=== PATIENT | male | born 1960 | race Caucasian/White ===

== ENCOUNTER → 2023-05-21 11:43 | Outpatient (CLI) | payer MEDICARE, OTHER, SELFPAY ==
--- NOTE | 2023-05-21 | DI.MRI.S_ITS ---
PROCEDURE: MR LUMBAR SPINE WO CON INDICATIONS: Unspecified thoracic, thoracolumbar and lumbosacral interver TECHNIQUE: Noncontrast sagittal T1 spin echo and T2 fast echo, sagittal STIR, and T2 fast spin echo through the lumbar spine. In cases with scoliosis, additional coronal T2 fast spin echo may be performed. COMPARISON: None. FINDINGS: Image quality: Excellent. Alignment and Curvature: Straightening the normal lumbar lordosis. Mild retrolisthesis of L5 on S1. Bone Marrow: Marrow is of normal overall signal. No acute vertebral body compression fractures. Spinal Cord: Conus medullaris terminates at the L2 level. Visualized cord demonstrates normal signal and size. Paraspinous Soft Tissues: No paravertebral masses. T12-L1: Facet arthropathy. No central canal or neural foraminal stenosis. L1-L2: Disc desiccation and height loss and a posterior disc bulge, asymmetric to the left resulting in severe stenosis of the left lateral recess and possible impingement of the descending left L2 nerve root. There is mild to moderate central canal stenosis. Facet arthropathy, thickening of ligamentum flavum and epidural lipomatosis. Moderate to severe left neural foraminal stenosis. No right neural foraminal stenosis. L2-L3: Disc desiccation height loss with a posterior disc bulge. Superimposed left foraminal protrusion. Facet arthropathy, thickening of the ligamentum flavum and epidural lipomatosis. This results in [id number] central canal stenosis. Moderate bilateral neural foraminal stenosis. L3-L4: Disc desiccation height loss. There is a diffuse posterior disc bulge with annular tearing. There is a superimposed right subarticular disc extrusion, inferiorly directed. This results in severe narrowing of the right lateral recess and likely impingement of the descending right L4 nerve root. There is moderate to severe central canal stenosis. Facet arthropathy, thickening of ligamentum flavum and epidural lipomatosis. There is severe right and mild left neural foraminal stenosis. L4-L5: Severe disc desiccation height loss. Posterior disc bulge. Facet arthropathy, thickening of ligamentum flavum and epidural lipomatosis. This results in moderate to severe central canal stenosis. There is severe bilateral neural foraminal stenosis. L5-S1: Disc desiccation and height loss with a posterior disc bulge. Facet arthropathy. No central canal stenosis. Severe left and moderate right neural foraminal stenosis. IMPRESSION: 1. Multilevel degenerative changes of the lumbar spine as described above. 2. This is most pronounced at L3-L4 with moderate to severe central canal stenosis, severe narrowing of the right lateral recess with likely impingement of the descending right L4 nerve root secondary to a disc extrusion. There is also severe right neural foraminal stenosis. 3. Moderate to severe central canal stenosis at L4-5. Additional levels of central canal stenosis as described above. 4. Multilevel neural foraminal stenosis including severe bilateral neural foraminal stenosis at L4-5 and severe left neural foraminal stenosis at L5-S1. See above for additional levels of neural foraminal stenosis. Dictated by: Michel Farah M.D. on 05/21/2023 at 15:16 Approved by: Michel Farah M.D. on 05/21/2023 at 15:25
== END ==
PROVIDERS: PCP Registered Nurse; Referring Provider Orthopaedic Surgery Orthopaedic Surgery of the Spine; Visit Provider Orthopaedic Surgery Orthopaedic Surgery of the Spine
DX: M48.062 Spinal stenosis, lumbar region with neurogenic claudication (principal); M47.816 Spondylosis without myelopathy or radiculopathy, lumbar region; M47.817 Spondylosis without myelopathy or radiculopathy, lumbosacral region; M48.07 Spinal stenosis, lumbosacral region; M51.9 Unspecified thoracic, thoracolumbar and lumbosacral intervertebral disc disorder
CPT/HCPCS: 72148

== ENCOUNTER 2023-06-10 09:52 | Inpatient (IN) | payer MEDICARE, OTHER, SELFPAY ==
[2023-06-07 08:33] VITALS: BMI 38.5
[2023-06-10] VITALS (16 sets, daily range): BP systolic 127–161; BP diastolic 62–94; PULSE 66–109; RESP 10–20; TEMP 36–36.8; O2SAT 93–100; BMI 38.5
--- NOTE | 2023-06-10 | DI.RAD.S_ITS ---
PROCEDURE: XR LUMBAR SPINE 2-3V INDICATIONS: S TECHNIQUE: 3 views of the lumbar spine were acquired. COMPARISON: None. FINDINGS: Intraoperative fluoroscopic views were performed during pedicular screw and christiano fixation. IMPRESSION: Intraoperative fluoroscopic views as above. Dictated by: Kevin Pathak M.D. on 06/10/2023 at 16:15 Approved by: Kevin Pathak M.D. on 06/10/2023 at 16:15
[2023-06-10] MEDS: LACTATED RINGERS 1,000 ML 42 ML IV ×2 (11:02→18:17)
[2023-06-10] MEDS: GABAPENTIN 600 MG TABLET PO (11:05)
--- NOTE | 2023-06-10 12:01 | PM.PREOP ---
Pre-operative Note Interval Note History & Physical reviewed/Exam performed by Physician: Yes Changes to H&P: No
--- NOTE | 2023-06-10 13:30 | SUR.OPER ---
Prone on spine table, head in foam head support, padded chest and pelvic supports, gel pad at knees, lower legs supported by pillows; nipples, genitalia and toes free of pressure, arms secured on foam padded arm boards at <90 degrees abduction. Tape over blanket at thigh secured to table.
[2023-06-10] MEDS: BUPIVACAINE LIPOSOME 266 MG/20 ML VIAL INJ (13:34)
[2023-06-10] MEDS: BUPIVACAINE 0.25% (PF) 60 ML, EPINEPHrine 0.15 MG INJ (13:34)
[2023-06-10] MEDS: CEFAZOLIN 2 GM/100 ML PREMIX 100 ML IV (13:37)
[2023-06-10] MEDS: CEFAZOLIN VIAL 3 GM in SODIUM CHLORIDE 0.9% 100 ML IV ×2 (13:39→21:15)
--- NOTE | 2023-06-10 15:56 | P.OP_ITS ---
Operative Date/Time/Diagnoses Date of procedure: 06/10/23 Time of procedure: 12:50 Pre-op diagnosis: 1. L3-4 far lateral disc herniation with radiculopathy 2. L3-4 spinal stenosis with neurogenic claudication Post-op diagnosis: same Procedure & Clinicians Procedure: 1. L3-4 Postero-lateral and posterior interbody fusion 2. L3-4 interbody cage placement. 3. L3-4 decompressive laminectomy with bilateral facetecomies 4. L3-4 Posterior non-segmental instrumentation 5. Hammond of bone marrow from iliac crest 6. Utilization of microsurgical technique and operating microscope Same procedure as scheduled: Yes Indications: Patient has been having chronic back pain and worsening lumbar radiculopathy and symptoms of neurogenic claudication. Patient failed multiple conservative management with worsening pain weakness and numbness in her lower extremity. Patient has been having difficulty performing activity of daily living. After discussing risks benefits of treatment options, patient elected proceed with surgery. Surgeon: Sandra Caballero Associate Entertainment Editor: Chidi Goddard Click Yes if Unassisted: No Anesthesia Type: General Operative Notes Closure Type: primary Specimen(s): none sent Prosthetic devices, grafts, tissues, transplants, or devices: Globus revolve screws, Rise cage Estimated Blood Loss (mL): 50 Blood products transfused: none Procedure in detail: Patient was seen in the preoperative area. Risks and benefits of the surgery was discussed with the patient. Informed consent was obtained from the patient and placed in the chart. Surgical site was marked. Patient was taken to the operative room. General anesthesia was administered. Prophylactic antibiotic was given to the patient less than 30 min before the incision was made. Patient was placed into a prone position on the Constantine table. Patient's back was then prep ped and draped in the sterile fashion. Time-out was performed at this time. Using AP and lateral C-arm imaging the interval between L4-5 was identified and marked on patient's back. A 2 inch incision 2 in from midline was made on the right side first. The fascia was incised in line with skin incision. Globus MARS retractors was placed inside the incision and docked onto the L4 lamina. Using microsurgical technique and operating microscope, a L4 laminectomy and L4- 5 facetectomy was performed using a Kerrison rongeur. The laminectomy and facetectomy was performed in order to decompress patient's cauda equina as well as the nerve roots exiting at the L4-5 level. Patient was found have severe central and foraminal stenosis at L4-5 level. The stenosis was fully decompressed after the laminectomy facetectomy and diskectomy was completed. The disc space at L4-5 was identified. And a total diskectomy was performed at L4-5 level. The endplates were decorticated using a rasp and shaver. The total diskectomy and decortication was performed at L4-5 level in order to to accomplish a L4-5 fusion. The local bone from the laminectomy and facetectomy was saved for local bone grafting. After the total diskectomy and decortication was completed, Trifecta bone graft material was combined with local bone that was harvested earlier. At this time, a separate skin is incision was made over the iliac crest. A Jamshidi needle was inserted into the iliac crest through a separate skin incision. 5 cc of bone marrow aspiration was obtained through the separate skin incision using a Jamshidi needle from the iliac crest. The bone marrow aspiration was combined with local bone and the DBM bone grafting material. The bone grafting material was placed into the L4-5 interbody space along with a expandable cage. The cage was expanded to its maximum height using the torque limiting screwdriver. At this time a mirror image incision was made on the left side. The fascia was incised in line with the skin incision. Globus MARS retractor was inserted and docked onto the L4-5 posterolateral gutter. Using the power drill, posterior- lateral decortication was performed at L4-5 level until bleeding cortical bone was identified. The remaining bone grafting material was placed into the L4-5 posterior lateral gutter he order to accomplish posterolateral fusion at the L4- 5 level. Using the double C-arm technique, pedicle screws were placed into the L4-5 pedicles bilaterally. This was done by placing the Jamshidi needle into the pedicles, then placing the guidewires over the Jamshidi needle, and finally placing the cannulated screws over the guidewires bilaterally. After the pedicle screws were placed, 2 titanium rods was locked into the heads of the pedicle screws using locking caps and torque limiting screwdriver. After all the hardware was placed, and confirmed with AP and lateral C-arm imaging, the wound was then irrigated with sterile normal saline and packed with Ray-Troy gauze for 3 min to accomplish hemostasis. After the gauze was removed the deep fascia was closed with #1 Vicryl suture. The subcutaneous layer was closed with 2-0 Vicryl. The skin was closed with skin lynsey. Patient tolerated the procedure well. There were no complications. The Operation could not have been safely performed without compromising the technical result or length of the procedure, without the assistance of a skilled surgical device sales representative. The surgical device sales representative was medically necessary for proper positioning, retraction and manipulation of instruments, proper exposure, surgical preparation, and manipulation of tissue. Complications: none Post-operative Condition: stable Disposition: PACU Plan for aftercare: Admit to inpatient hospital
[2023-06-10] MEDS: ALBUTEROL 2.5 MG/3 ML NEB (ADULT) INH ×2 (17:02→21:10)
[2023-06-10] MEDS: OXYCODONE IR 5 MG TABLET PO (17:27)
[2023-06-10] MEDS: hydrOXYzine 50 MG/ML INJ 25 MG IM (17:27)
--- NOTE | 2023-06-10 18:24 | P.TELICUCN_ITS ---
History of Present Illness Consult details IF CAMERA ACTIVATED, patient seen via real-time interactive audiovisual communication: Camera activated Chief complaint: Translaminar Interbody Fusion/Laminotomy 06/10 Consent obtained for tele-supply chain specialist care: Yes Patient Location: ICU Provider location (State): [place] Other participants/roles: Kellie Bedside Nurse Narrative: 62yo M who presents to the ICU s/p L3-4 TLIF complicated by intraop bronchospasm. The bronchospasm resolved after albuterol and deepening the anesthetics. The patient was successfully extubated in the OR. [facility] Medical History (Updated 06/10/23 @ 19:50 by Minna Freitas MD) History of acute myocardial infarction (~06/21/16) History of angiography History of asthma History of chronic back pain History of COPD History of degenerative joint disease History of diabetes mellitus History of essential hypertension History of hearing loss History of hyperlipidemia History of metabolic syndrome History of obstructive sleep apnea Surgical History (Updated 05/30/23 @ 15:48 by Lashay Echevarria RN) History of carpal tunnel surgery of left wrist History of carpal tunnel surgery of right wrist (~2012) History of heart artery stent (~2008) History of total hip replacement (~2010) History of total hip replacement (~2006) History of umbilical hernia repair Social History household members: spouse Smoking Status: Former smoker alcohol intake: current Current Medications Current Medications Medications: Home Medications albuterol sulfate 90 mcg/actuation aerosol inhaler 2 puff inhalation Q4-6H PRN Shortness Of Breath Or Wheezing 05/30/23 [History Confirmed 06/10/23] chlorthalidone 50 mg tablet 50 mg PO BID 05/30/23 [History Confirmed 06/10/23] losartan 100 mg tablet 100 mg PO DAILY 05/30/23 [History Confirmed 06/10/23] metoprolol succinate 25 mg tablet,extended release 24 hr (Toprol XL) 25 mg PO DAILY 05/30/23 [History Confirmed 06/10/23] rosuvastatin 10 mg tablet 10 mg PO BEDTIME 05/30/23 [History Confirmed 06/10/23] ascorbic acid (vitamin C) 500 mg tablet (Vitamin C) 500 mg PO BID 06/07/23 [History Confirmed 06/10/23] aspirin 81 mg tablet,delayed release 81 mg PO DAILY 06/07/23 [History Confirmed 06/10/23] cholecalciferol (vitamin D3) 125 mcg (5,000 unit) tablet (Vitamin D3) 250 mcg PO DAILY 06/07/23 [History Confirmed 06/10/23] diphenhydramine HCl 25 mg capsule (Benadryl) 25 mg PO TID PRN Allergic Reaction 06/07/23 [History Confirmed 06/10/23] ezetimibe 10 mg tablet (Zetia) 10 mg PO BEDTIME 06/07/23 [History Confirmed 06/10/23] fish, borage, flaxseed oils-omega 3,6,9 comb no.1 1,200 mg capsule ([place] 3-6-9) 1 cap PO DAILY 06/07/23 [History Confirmed 06/10/23] fluticasone 500 mcg-salmeterol 50 mcg/dose blistr powdr for inhalation (Wixela Inhub) 1 inh inhalation BID 06/07/23 [History Confirmed 06/10/23] metformin 500 mg tablet 1,000 mg PO DAILY 06/07/23 [History Confirmed 06/10/23] vvfupcrlapum-dfderkzw-pwstbj tablet 1 tab PO DAILY 06/07/23 [History Confirmed 06/10/23] potassium 99 mg tablet 99 mg PO DAILY 06/07/23 [History Confirmed 06/10/23] vitamin E mixed 1,000 unit capsule 1,000 unit PO DAILY 06/07/23 [History Confirmed 06/10/23] Visit Medications (administered) Generic Name Dose Route Start Last Admin Trade Name Freq PRN Reason Stop Dose Admin Hydroxyzine HCl 25 mg 06/10/23 14:36 06/10/23 17:27 Hydroxyzine 50 Mg/Ml Inj IM 25 mg NOW PRN Administration Pain, Mild (1-3) Lactated Ringer's 1,000 mls @ 42 mls/hr 06/10/23 07:15 06/10/23 18:17 Lactated Ringers IV 42 mls/hr CONT MAR Administration Oxycodone HCl 5 mg 06/10/23 14:36 06/10/23 17:27 Oxycodone Ir 5 Mg Tablet PO 5 mg PACUNOW PRN Administration Mild or moderate pain Review of Systems Respiratory Comments: on RA, no wheezing, breathing is at baseline Exam Vital Signs (past 8 hours): - 06/10/23 10:27 06/10/23 17:02 06/10/23 17:09 Temperature 97.8 F 96.8 F L Pulse Rate 66 109 H 103 H Respiratory Rate 16 12 12 Blood Pressure 161/90 H 130/94 H 127/78 Pulse Oximetry 94 93 93 Oxygen Delivery Method Room Air Room Air Room Air Oxygen Flow Rate 06/10/23 17:13 06/10/23 17:18 06/10/23 17:28 Temperature Pulse Rate 109 H 99 H 97 H Respiratory Rate 12 10 L 10 L Blood Pressure 130/94 H 141/81 H 156/91 H Pulse Oximetry 95 98 98 Oxygen Delivery Method Room Air Room Air Room Air Oxygen Flow Rate 06/10/23 17:33 06/10/23 17:44 06/10/23 17:59 Temperature Pulse Rate 98 H 95 H 90 Respiratory Rate 12 12 10 L Blood Pressure 160/85 H 132/68 136/88 Pulse Oximetry 97 97 99 Oxygen Delivery Method Room Air Room Air Nasal Cannula Oxygen Flow Rate 2 06/10/23 18:15 Temperature Pulse Rate 95 H Respiratory Rate 12 Blood Pressure 133/78 Pulse Oximetry 99 Oxygen Delivery Method Nasal Cannula Oxygen Flow Rate 2 Oxygen Delivery Method Nasal Cannula Oxygen Flow Rate 2 Const Other: A+Ox3, CAM - Resp Other: lungs clear per exam by bedside nurse Cardio Other: RRR Back/Spine/Pelvis Other: back dressing clean, dry, intact Neuro Other: 5/5 strength in all extremities per bedside nurse report Assessment & Plan Assessment and plan (1) COPD (chronic obstructive pulmonary disease): Status: Acute Plan Asthma with intraoperative bronchospasm - now extubated, lungs clear, Q4 PRN albuterol, pt is on no other inhalers at home, keep sats > 92%, IS HTN - on losartan, metop at home, restart metop, hold losartan for now, SBP 130- 160s CAD s/p PCI - on home ASA, hold for tonight, will follow up on whether it can be continued tomorrow restart home statin, zetia STEVE- CPAP tonight PPx: SCD OOB, plan to order PT, OT tomorrow, encourage IS Assessment & Plan narrative: Asthma s/p intraop bronchospasm CAD STEVE HTN Time Spent With Patient Time with patient: 30 to 49 minutes with 50% spent counseling/coordinating care
--- NOTE | 2023-06-10 18:54 | PC.NURSE ---
Admit: Pt wheeled via bed from PACU to ICU. Slide board utilized to transfer pt from bed to ICU bed. Pt A&Ox4, taking PO, VSS with mild hypertension. RA 95%. Call light within reach. Bed alarm active. Care ongoing.
[2023-06-10] MEDS: LACTATED RINGERS 1,000 ML 125 ML IV (19:30)
[2023-06-10] MEDS: EZETIMIBE 10 MG TABLET PO (21:15)
[2023-06-10] MEDS: CHLORTHALIDONE 25 MG TABLET 50 MG PO (21:15)
[2023-06-10] MEDS: ASCORBIC ACID 500 MG TABLET PO (21:15)
[2023-06-10] MEDS: SENNOSIDES 8.6 MG TABLET 17.2 MG PO (21:15)
[2023-06-10] MEDS: ATORVASTATIN 20 MG TABLET PO (21:15)
[2023-06-10] MEDS: DOCUSATE 100 MG CAPSULE PO (21:15)
[2023-06-10] MEDS: BUDESONIDE 0.5 MG/2 ML NEB INH (21:18)
[2023-06-10] MEDS: OXYCODONE IR 10 MG TABLET PO (21:20)
[2023-06-11] VITALS (9 sets, daily range): BP systolic 132–148; BP diastolic 65–70; PULSE 82–99; RESP 11–24; TEMP 36.6–37.2; O2SAT 93–98
[2023-06-11] MEDS: OXYCODONE IR 10 MG TABLET PO ×2 (02:06→08:31)
[2023-06-11] MEDS: CEFAZOLIN VIAL 3 GM in SODIUM CHLORIDE 0.9% 100 ML IV (05:20)
[2023-06-11] MEDS: HYDROMORPHONE 0.5 MG INJ IV ×3 (05:33→15:41)
--- NOTE | 2023-06-11 06:55 | PC.NURSE ---
shift note--pt has had a moderate amt of pain this shift; he had 2 doses of oxycodone and one of dilaudid; he ambulated 3 times in the hallway and has been up in the recliner for half the shift for comfort; he has voided twice and is tolerating po intake; reports numbness to bilateral toes now completely resolved
[2023-06-11] MEDS: BUDESONIDE 0.5 MG/2 ML NEB INH (07:54)
[2023-06-11] MEDS: ALBUTEROL 2.5 MG/3 ML NEB (ADULT) INH ×2 (07:54→18:04)
--- NOTE | 2023-06-11 08:02 | PM.PNPO.1 ---
Subjective Subjective Date Patient Seen: 06/11/23 Time Patient Seen: 08:03 Interval history: Patient's pain is moderate to severe. Denies fever or chills. No nausea or vomiting. Consultation yesterday evening for intraop bronchospasm. Bronchospasm resolved after albuterol. Patient was successfully extubated in the OR. Exam Vital Signs (past 8 hours): - 06/11/23 01:22 06/11/23 05:45 06/11/23 07:54 Temperature 97.8 F 98.7 F Pulse Rate 92 H 92 H 91 H Respiratory Rate 24 23 16 Blood Pressure 147/66 H 144/66 H Pulse Oximetry 97 98 96 Oxygen Delivery Method Room Air Oxygen Flow Rate 0 Oxygen Delivery Method Room Air Oxygen Flow Rate 0 Narrative Exam Narrative: Patient is sitting comfortably in bedside chair in no apparent distress. Motor functions intact bilateral lower extremities. Const General: cooperative and comfortable Orientation: alert Resp Effort & Inspection: normal respiratory effort and able to speak in complete sentences [facility] Medical History History of acute myocardial infarction (~06/21/16) History of angiography History of asthma History of chronic back pain History of COPD History of degenerative joint disease History of diabetes mellitus History of essential hypertension History of hearing loss History of hyperlipidemia History of metabolic syndrome History of obstructive sleep apnea Surgical History History of carpal tunnel surgery of left wrist History of carpal tunnel surgery of right wrist (~2012) History of heart artery stent (~2008) History of total hip replacement (~2010) History of total hip replacement (~2006) History of umbilical hernia repair Social History household members: spouse Smoking Status: Former smoker alcohol intake: current Assessment & Plan Post-op Postoperative Procedures: Procedures Operation Date: 06/10/23 11:45 Actual Procedure Side Surgeon p L3-4 TLIF Sandra Caballero MD Postoperative day: 1 Postoperative status: doing well and marginal pain control Postoperative status narrative: Staple status post lumbar fusion, asthma with intraop bronchospasm extubated in OR. Postoperative plan: routine post-op care Postoperative plan narrative: Mobilize with physical therapy, limit bending, twisting, lifting Multimodal pain management Keep dressing clean and dry Discharge home today or tomorrow if stable per hospitalist. Quality VTE Deep Vein Thrombosis/Pulmonary Embolism Present on Admission: No
[2023-06-11] MEDS: LOSARTAN 50 MG TABLET 100 MG PO (08:30)
[2023-06-11] MEDS: CHLORTHALIDONE 25 MG TABLET 50 MG PO ×2 (08:31→20:09)
[2023-06-11] MEDS: DOCUSATE 100 MG CAPSULE PO ×2 (08:31→20:08)
[2023-06-11] MEDS: ASCORBIC ACID 500 MG TABLET PO ×2 (08:31→20:09)
[2023-06-11] MEDS: MULTIVITAMIN 1 TABLET 1 TAB PO (08:31)
[2023-06-11] MEDS: METOPROLOL ER 25 MG TABLET PO (08:31)
[2023-06-11] MEDS: METFORMIN HCL 500 MG TABLET 1000 MG PO (08:31)
[2023-06-11] MEDS: FISH OIL 1,000 MG CAPSULE 1000 MG PO (08:38)
[2023-06-11] MEDS: CHOLECALCIFEROL (VITAMIN D3) 5,000 UNIT TABLET 10000 UNIT PO (08:38)
[2023-06-11] MEDS: polyethylene glycoL 3350 17 GM POWD.PACK PO (08:39)
--- NOTE | 2023-06-11 09:37 | PT.IIE ---
Current Diagnoses Chronic obstructive pulmonary disease, unspecified (06/10/23) Spinal stenosis, lumbar region with neurogenic claudication (06/10/23) Other intervertebral disc displacement, lumbar region (06/10/23) Surgery Performed Operation Date: 06/10/23 11:45 Actual Procedures p L3-4 TLIF - Sandra Caballero MD Surgical History (Last Reviewed 06/11/23 @ 08:05 by Chidi Goddard PA-C) History of carpal tunnel surgery of left wrist History of carpal tunnel surgery of right wrist (~2012) History of heart artery stent (~2008) History of total hip replacement (~2010) History of total hip replacement (~2006) History of umbilical hernia repair Medical History (Last Reviewed 06/11/23 @ 08:05 by Chidi Goddard PA-C) History of acute myocardial infarction (~06/21/16) History of angiography History of asthma History of chronic back pain History of COPD History of degenerative joint disease History of diabetes mellitus History of essential hypertension History of hearing loss History of hyperlipidemia History of metabolic syndrome History of obstructive sleep apnea Physical Therapy Inpatient Evaluation/Re-Eval M1 PT/OT-IP Prior Functional Status Start: 06/11/23 10:18 Freq: NEEDED Status: Active Protocol: Document 06/11/23 10:18 AB (Rec: 06/11/23 10:47 AB [id number]) Medical Review Prior Functional Status Medical History Reviewed Yes Communication Pt is able to express all needs. Mobility and Gait Pt did not use AD at PLOF. Activities of Daily Living and IADL's IND with all ADLs and IADLs but was limited by LBP. Social History Household Members spouse Living Arrangements Mobile home Number of Floors (Floors) One Floor Number of Stairs To Enter/Railing? 1 ANNELISE or none Home Environment Standard Height Toilet,Walk in Shower,Built-In Shower Seat Home Equipment Four Wheel Walker,Straight Cane,Raised Toilet Seat Without Armrests Employment Status Retired Additional Social History Comment Pt lives with spouse who can assist 01/04 if needed. He reports he will likely be sleeping in recliner, as he is most comfortable in recliner vs bed. M2 PT-IP Current Condition Start: 06/11/23 10:18 Freq: NEEDED Status: Active Protocol: Document 06/11/23 10:18 AB (Rec: 06/11/23 10:47 AB [id number]) Physical Therapy Current Condition Current Condition Evaluation Date 06/11/23 Treatment Diagnosis s/p lumbar TLIF L3-4 Onset Date 06/10/23 M3 PT-IP Subjective Start: 06/11/23 10:18 Freq: NEEDED Status: Active Protocol: Document 06/11/23 10:18 AB (Rec: 06/11/23 10:47 AB [id number]) Subjective Physical Therapy Visit Type Type Initial Evaluation Visit Start Time 08:53 Visit Stop Time 09:37 Total Visit Minutes 44 Physical Therapy Visit Comments Patient Comments Pt presents seated in chair and reports his pain with movement is 10/10, and currently at rest is 8/10. However, he states he would like to try to do PT eval this morning. Therapy Pain Assessment Pain When Pain Assessed At Rest Pain Present Pain Present Pain Reported Location Lower Back Intensity 8 Scale Used Numeric (0 - 10) Pain Behaviors Facial Grimacing,Wincing Pain Management Techniques Apply Cold,Distraction,Re- positioning M4 PT-IP Mobility and Gait Start: 06/11/23 10:18 Freq: NEEDED Status: Active Protocol: Document 06/11/23 10:18 AB (Rec: 06/11/23 10:47 AB [id number]) PT-Bed Mobility Assessment Rolling Type of Rolling Log Rolling Level of Assist Standby Assistance Supine to Sit Supine to Sit Standby Assistance Sit to Supine Sit to Supine Standby Assistance Scooting Scooting to Edge of Bed Standby Assistance PT-Transfer Assessment Sit to and From Stand Sit to and from Stand Standby Assistance,Use of Upper Extremities Equipment Transfer Assistive Device Gait Belt,Front Wheeled Walker Transfers Transfer Destination Bed,Chair Transfer Technique Stand Step Pivot Transfer Ability Level of Assist Standby Assistance,Use of Upper Extremities Comments Mobility Comments Pt reports he has already been up walking with awake overnight monitor nursing staff, and denied any episodes of dizziness and lightheadedness. Pt performed STS and chair<>bed transfer using FWW and SBA. Pt was then instructed in performing log roll technique for sit<>supine , and is able to perform with SBA though he has difficulty raising his legs on to bed. After resting supine in bed in order to allow pain to calm down, the pt then performed log roll for supine<>sit at EOB with SBA. Pt then performed additional mobility below. At end of session, pt returned to chair with all needs met and call light within reach. Gait Assessment Gait Gait Assistance Required: Standby Assistance Distance (Feet) 150 Assistive Devices Assistive Device Gait Belt,Front Wheeled Walker Gait Deviations General Gait Pattern Decreased Stride Length,Flexed Trunk Factors Limiting Gait Function Factors Limiting Gait Function Decreased Strength,Limited Range of Motion,Pain Comments Gait Comments Pt ambulated with FWW and SBA, which he reports is much better than without AD as he did last night. He reports his limiting factor is pain. He walks with mild forward flexed trunk but is able to self correct. Stair Climbing Assessment Evaluation Level of Assist On Stairs Standby Assistance Devices Stair Climbing Assistive Devices Front Wheel Walker Technique/Endurance Stair Climbing Direction Ascend and Descend Stair Climbing Technique Step to Step Number of Steps Climbed 1 Query Text: Stair Climbing Set # Repetitions (reps) 1 Comments Stair Climbing Comments Pt demonstrates he has enough LE strength to ascend/descend 1 step, and was able to perform using FWW, with education provided for proper technique. PT-Balance Assessment Sitting Balance and Reactions Static Sitting Balance Ability Normal Dynamic Sitting Balance Ability Normal Standing Balance and Reactions Static Standing Balance Ability Normal Dynamic Standing Balance Ability Good M5 PT-IP Objective Assessments Start: 06/11/23 10:18 Freq: NEEDED Status: Active Protocol: Document 06/11/23 10:18 AB (Rec: 06/11/23 10:47 AB [id number]) Orientation Orientation/Cognition Level of Alertness Alert Orientation Name,Age,Birthday,Month,Date, Year,Day of Week,Place, Situation Language Function Ability No Deficits Noted Safety Awareness Understands Safety Issues Memory Description No Deficits Noted Gross Range of Motion Upper Extremity ROM Assessment Within Functional Limits Lower Extremity ROM Assessment Within Functional Limits Strength Upper Extremity Strength Assessment Within Functional Limits Lower Extremity Strength Assessment Within Functional Limits Muscle Tone Muscle Tone WNL Yes M6 PT-IP Treatment Start: 06/11/23 10:18 Freq: NEEDED Status: Active Protocol: Document 06/11/23 10:18 AB (Rec: 06/11/23 10:47 AB [id number]) Physical Therapy Treatment Education Education Provided Precautions,Weight Bearing Status,Post-Op Packet,Safety Brace Education Patient M7 PT-IP Assessment and Plan Start: 06/11/23 10:18 Freq: NEEDED Status: Active Protocol: Document 06/11/23 10:18 AB (Rec: 06/11/23 10:47 AB [id number]) PT Summary Assessment and Plan Potential Rehabilitation Potential Good Status of Condition at Evaluation Stable Summary Impairments Pain,ROM,Strength,Balance,Bed Mobility,Transfers,Gait, Activity Tolerance Assessment Summary Melchor Menjivar is a 62 year old male patient who is s/p lumbar TLIF L3-4 performed on 06/10/23. The pt currently presents with deficits consistent with this surgical procedure including mobility deficits, pain symptoms and gait abnormalities, which are impacting his ability to perform functional mobility independently. The pt currently requires SBA for all functional mobility, and demonstrates improved function when using FWW for STS, transfers, ambulation and to ascend/descend a step due largely to his pain levels. Based on his current level of function, PT currently recommends discharge to home with assistance. The pt would benefit from continued skilled PT intervention during his hospitalization to improve to his highest level of function. Goals Bed Mobility Goal Independent Transfer Goal Independent,Front Wheeled Walker Gait Goal Independent,Front Wheel Walker Gait Distance 200 Other Goals Pt to be able to perform transfers with FWW or no AD independently in order to show improving strength and mobility to perform functional activities. Pt to be able to ambulate 200ft with FWW or LRAD independently without significant gait deviations to show improving tolerance to ambulation. Days to Meet Goals 5 Frequency of Treatment Frequency Of Treatment Twice a Day Treatment Plan Physical Therapy Treatment Plan Bed Mobility Training,Transfer Training,Gait Training, Therapeutic Exercise,Balance Retraining,Post Op Education, Discharge Planning,Hot or Cold Pack,Neuromuscular Re-ed, Coordination Retraining,Manual Therapy Precautions Lumbar Precautions Log Roll,No Twisting,Limit Bending,Lifting Restriction of 10 lbs,Gait Belt above Incisional Area Recommendations To Nursing Amount of Assist Needed Standby Assistance,1 Person Assist Discharge Recommendations PT Discharge Recommendations Home with Assistance Transportation Needs at Discharge Private Vehicle
--- NOTE | 2023-06-11 10:30 | OT.IP.EVAL ---
Current Diagnoses Chronic obstructive pulmonary disease, unspecified (06/10/23) Spinal stenosis, lumbar region with neurogenic claudication (06/10/23) Other intervertebral disc displacement, lumbar region (06/10/23) Surgery Performed Operation Date: 06/10/23 11:45 Actual Procedures p L3-4 TLIF - Sandra Caballero MD Past Medical History (Last Reviewed 06/11/23 @ 08:05 by Chidi Goddard PA-C) History of acute myocardial infarction (~06/21/16) History of angiography History of asthma History of chronic back pain History of COPD History of degenerative joint disease History of diabetes mellitus History of essential hypertension History of hearing loss History of hyperlipidemia History of metabolic syndrome History of obstructive sleep apnea Surgical History (Last Reviewed 06/11/23 @ 08:05 by Chidi Goddard PA-C) History of carpal tunnel surgery of left wrist History of carpal tunnel surgery of right wrist (~2012) History of heart artery stent (~2008) History of total hip replacement (~2010) History of total hip replacement (~2006) History of umbilical hernia repair Occupational Therapy Inpatient Evaluation/Re-Eval M1 PT/OT-IP Prior Functional Status Start: 06/11/23 11:25 Freq: NEEDED Status: Active Protocol: Document 06/11/23 10:15 [facility] (Rec: 06/11/23 11:43 [facility] [id number]) Medical Review Prior Functional Status Medical History Reviewed Yes Communication Pt is able to express all needs. Mobility and Gait Pt did not use AD at PLOF. Activities of Daily Living and IADL's IND with all ADLs and IADLs but was limited by LBP. Social History Household Members spouse Living Arrangements Mobile home Number of Floors (Floors) One Floor Number of Stairs To Enter/Railing? 1 ANNELISE or none Home Environment Standard Height Toilet,Walk in Shower,Built-In Shower Seat Home Equipment Front Wheel Walker,Straight Cane,Raised Toilet Seat Without Armrests,Long Handled Shoe Horn Employment Status Retired Additional Social History Comment Pt lives with spouse who can assist / if needed. He reports he will likely be sleeping in recliner, as he is most comfortable in recliner vs bed. M2 OT-IP Current Condition Start: 06/11/23 11:25 Freq: Status: Active Protocol: Document 06/11/23 10:15 [facility] (Rec: 06/11/23 11:43 [facility] [id number]) Occupational Therapy Current Condition Current Condition Evaluation Date 06/11/23 Treatment Diagnosis S/P L3-4 TLIF Diagnosis Onset Date 06/10/23 Post Operative Precautions Lumbar Precautions Log Roll,No Twisting,Limit Bending,Lifting Restriction of 10 lbs,Gait Belt above Incisional Area M3 OT- IP Subjective and Pain Start: 06/11/23 11:25 Freq: Status: Active Protocol: Document 06/11/23 10:15 [facility] (Rec: 06/11/23 11:43 [facility] [id number]) OT- Subjective Occupational Therapy Visit Type Type Initial Evaluation Visit Start Time 10:10 Visit Stop Time 10:30 Total Visit Minutes 20 Occupational Therapy Visit Comments Patient Comments Pt justing getting pain meds but agreed to work with OT. Patient/Caregiver Goals TO go home. OT Pain Assessment Pain When Pain Assessed At Rest Pain Present Pain Present Pain Reported Location Lower Back Intensity 8 Scale Used Numeric (0 - 10) M4 OT- IP ADL's Start: 06/11/23 11:25 Freq: Status: Active Protocol: Document 06/11/23 10:15 [facility] (Rec: 06/11/23 11:43 [facility] [id number]) OT [id number] General Evaluation Self-Feeding Ability Independent OT ADL-Grooming Comments OT Grooming Comments Not performed. OT ADL-Oral Care Comments Oral Care Comments Educated best for pt to spit into a cup or hinge at his hips in order to best follow his back precautions. OT ADL-Dressing General Eval Lower Body Dressing Ability Maximum Assistance Areas Needing Assistance Socks Comments OT Dressing Comments At this time pt will need assist or use of LB dressing equipment. OT ADL-Toileting Comments OT Toileting Comments Pt not having to go. OT ADL-Bathing Comments OT Bathing Comments Pt would benefit from a shower chair at home. M5 OT- IP IADL's Start: 06/11/23 11:25 Freq: Status: Active Protocol: Document 06/11/23 10:15 [facility] (Rec: 06/11/23 11:43 [facility] [id number]) OT-Instrumental Activities of Daily Living Deficits IADL Deficits Identified Deficits Home Safety Awareness Awareness of Need for Assistance at Home Good Awareness Ability to Problem Solve Emergency Able to Problem Solve Situations Medication Management Medication Management No Deficits Identified Money Management Money Management No Deficits Identified Meal Preparation Meal Preparation Comments Pt's to assist. Bisque Tile Burner Bisque Tile Burner Comments Pt's to assist. M6 OT- IP Functional Cognition Start: 06/11/23 11:25 Freq: Status: Active Protocol: Document 06/11/23 10:15 [facility] (Rec: 06/11/23 11:43 [facility] [id number]) Cognitive Factors Limiting Selfcare Function Cognitive Ability Level of Alertness Alert Patient Orientation Name,Age,Birthday,Month,Date, Year,Day of Week,Place, Situation Attention Span Ability Capable of Focused Attention, Capable of Sustained Attention Ability to Follow Commands Able to Follow Multi-Step Commands Memory Description No Deficits Noted Safety Awareness No Deficits Noted Cognitive Comments Cognitive Assessment Comments Pt able to recall all his back precautions however just given Dilaudid and starting to get groggy. OT- Vision and Hearing OT- Hearing Assessment OT- Hearing Assessment WFL OT- Vision Assessment Vision Assessment Comments Pt wears glasses. M7 OT- IP Mobility and Balance Start: 06/11/23 11:25 Freq: Status: Active Protocol: Document 06/11/23 10:15 [facility] (Rec: 06/11/23 11:43 [facility] [id number]) OT-Transfer Assessment Sit to and From Stand Sit to and from Stand Contact Guard Assistance Comments Mobility Comments Pt able to come to stand with heavy use of his arms on the armrest via walking up with his arms in order to help to stand up to the FWW. Educated pt to scoot forwards so able to hinge at his hips to engage his legs more in addition to his arms to help to stand. Pt will continue to benefit from more practice. OT- Balance Assessment Sitting Balance and Reactions Static Sitting Balance Ability Normal Dynamic Sitting Balance Ability Good Standing Balance and Reactions Static Standing Balance Ability Good M9 OT- IP Assessment and Plan Start: 06/11/23 11:25 Freq: Status: Active Protocol: Document 06/11/23 10:15 [facility] (Rec: 06/11/23 11:43 [facility] [id number]) OT Summary Assessment and Plan Potential Rehabilitation Potential Good Analytic Complexity at Evaluation Low Summary OT Impairments Pain,Balance,Functional Mobility,Dressing,Toileting, Bathing,Toilet Transfers, Shower Transfers Progress Towards Goals Progressing Toward Goals,Slow Progress due to Pain Assessment Summary Pt low complexity and main barriers are pain, trouble with transitions as he heavily relies on his arms to come to stand, and needing assist for ADL needs. Pt would benefit from LB dressing equipment and a shower chair at home to use . Pt when medically stable looking to go home with assist . Goals Dressing Goal Independent Toileting Goal Independent Bathing Goal Independent Toilet Transfer Goal Independent Shower Transfer Goal Independent Days to Meet Goals 7 Frequency of Treatment Frequency Of Treatment Once a Day Treatment Plan OT Treatment Plan ADL Training,Functional Mobility,Patient/Family Education,Discharge Planning Discharge Recommendations OT Discharge Recommendations Home with Assistance Home Equipment Needs LB dressing equipment and shower chair Transportation Needs at Discharge Private Vehicle
--- NOTE | 2023-06-11 11:26 | CM.DANOTE ---
DCP Assessment Note: Patient is a 62yo M here following planned TLIF with Dr. Caballero on 06.10.23. PCP Soraya Garcia Medicare and [facility] FORM STRIPPER reviewed EMR. Per PA note, patient either to d/c today or tomorrow. Per PT, patient moved very well and is okay for home with family assistance. FORM STRIPPER entered room and introduced self and role. Patient sitting up in chair and appeared A/Ox4. Patient does not use any DME at baseline but has a walker/raised toilet/shoe horn/grabber for d/c. Patient lives with with Alicja ([phone]) and is IADLs/drives at baseline. Plan is for to transport home. FORM STRIPPER answered insurance related questions as able. Plan: patient to d/c home when medically stable with in POV. no needs identified at this time. CM team will continue to follow as needed. ANNIE Salamanca Discharge Planning/Care Management CM Discharge Assessment Start: 06/11/23 11:23 Freq: Status: Active Protocol: Document 06/11/23 11:24 SL (Rec: 06/11/23 11:26 [id number]) Discharge Planning Assessment Assigned Cutting Tool Sharpener ANNIE Elliott DPOA/Assigned Designee Name Alicja () Contact Information [phone] Advance Directives? No History Provided By Patient,Medical Record Prior Living Arrangements Mobile home Household Members spouse Type of transporation used prior to Drives own vehicle admit Independent with ADL's Yes Is patient alert and oriented? Yes DME Already Rented / Owned Elevated Toilet Seat,FWW / Walker Comment shoe horn and grabber Barriers to Discharge No Discharge Plan Home Transportation Arrangement in POV Referrals Initiated None needed Whiteboard Updated in Patient Room with Yes name and ext. # of Cutting Tool Sharpener Review Status In Process Next Review Type Continued Stay Review Pre-Anesthesia Assessment Start: 06/07/23 08:33 Freq: Status: Active Protocol: Document 06/07/23 08:33 TC (Rec: 06/07/23 09:35 TC [id number]) Pre-Anesthesia Assessment Patient Information Reviewed Via Phone Assessment Assessment Completed With Patient Consent for Planned Operative Procedure( md to complete s) Verified H&P Completed Within 30 Days MD to complete Diagnostic Results BMP/CMP,CBC,EKG,Other Comment 7/12/23 scanned Primary Care Provider Nolan Power Medical Clearance Received Yes Seen Specialist in Last 12 Months Yes Specialist Seen Shot Core Drill Operator Helper,Orthopedist Primary Language Brazilian Preferred Language Brazilian Foam Fabricator Required No Height 177.17 cm Weight 121.109 kg Body Mass Index (BMI) 38.5 Hearing Ability Hearing Impaired Visual Impairment Partially Limited Visual Assist Glasses Dentition Type Teeth, Natural Present Barriers to Learning None Hx Anesthesia Reactions No: after right hip, had fever 4 days, were ice packing patient Hx Family Anesthesia Reaction No Hx Malignant Hyperthermia No Hx Blood Transfusions No Hx Blood Transfusion Reaction No Anesthesia Review Requested Yes Additional comment OK to proceed Fixture Designer No alcohol intake current alcohol intake frequency a few times a week Alcohol Intake Frequency Other: once a week Smoking Status Former smoker how long ago did patient quit smoking 10/21/2011 Substance Use Type other Comment CBD Pain Present Pain Reported Musculoskeletal Symptoms Back Pain History of Falling (Recent or History of No ) Patient is completely paralyzed or No completely immobile Ambulatory Aid Crutches/cane/walker Gait/Transferring Normal/bedrest/immobile Mental Status Oriented to own ability Is patient on oxygen? No Hx Sleep Apnea Yes CPAP/BIPAP use prescribed and used routinely Will Bring CPAP/BIPAP DOS Yes Currently Taking a Beta Chloe Yes: metoprolol Can You Climb a Flight of Stairs Without Yes SOB Hx Chest Pain No Hx SOB No Hx Syncope or Dizziness No Anti-Coagulant Therapy No Has a Singing Teacher Yes Singing Teacher name [facility] Cardiac Testing Yes: echo, carotid US February 2022 Hx Pacemaker/ICD No Pacemaker Rep Required? No Cardiac Clearance Received Not Applicable Diet Type At Home Regular Dysphagia No Comment has hernia that can block food going down if pt eats to fast Urinary Catheter Present No Hx Urinary Self Catheterization No Diabetes Yes HgbA1C 6.6 Date 03/20/23 Hx Drug Resistant Organism No Presence of External or Internal Medical Yes: RTHA, LTHA, cardiac Devices stents x 4 Have you had any close contact with No someone diagnosed with COVID-19? Are you experiencing any of these No symptoms symptoms? Evaluation/Screening for possible COVID- Yes 19 infection completed? Received a COVID vaccine? No Marital Status Lives With spouse Current Living Arrangements Mobile home Number of Floors (Floors) One Floor Support System Family,Spouse Does the Patient Have Assistance After Yes Surgery Patient Discharge Plan Description Return Home Feels Safe in Current Environment Yes Been Physically Hurt or Threatened By a No Person in Current Environment If Yes, Provider Notified No Do you have thoughts of harming yourself None or others? Are you currently considering suicide? No Do you have a plan to hurt yourself or No Plan others? If Yes, Provider Notified No Do You Have Any Spiritual Beliefs That No May Affect Your HC Choices? Do You Have Any Cultural Practices That No May Affect Your HC Choices? Who Can We Speak to About Patient's Care [place] Identifying Code for Release of Patient declines to issue Information Health Care Proxy/Next of Kin [facility] Health Care Proxy Emergency Contact Name [facility] Emergency Contact Advance Directives? No Power of Gelatin Maker Utility No PAC Instructions Assistance for 24 hours post- op,Bring CPAP/BIPAP,Diabetes instructions,Do not shave/clip surgical site,Durable medical equipment,Medications to take /avoid,Nasal antibiotic,No ETOH/petroleum product on skin DOS,NPO,Pre-surgical wash, Sturdy shoes/comfortable clothes,Do not bring valuables and remove jewelry
[2023-06-11] MEDS: diazePAM 5 MG TABLET PO (11:50)
[2023-06-11] MEDS: HYDROMORPHONE 2 MG TABLET PO ×2 (12:37→20:09)
--- NOTE | 2023-06-11 12:48 | PC.NURSE ---
Addendum entered by Dodie Doherty R.N. 06/11/23 18:10: Spoke with ortho provider and gave him an update on pt's poor pain control, only reduced by IV dilaudid. Pt aware IV dilaudid not available after discharge at home. Conveyed to provider different pain meds tried, along with positioning, ice and other non-pharmacological methods. VS stable, closely monitoring pt's respiratory status throughout day. Original Note: In am, administered oxycodone 10mg to pt. At reassessment, pt said that pain level was still a 10. Gave patient IV dilaudid, which he said brought pain down to 4/10. Called Dr. Caballero to discuss pain medication options that PO pain medications were not adequately controlling pain and cramping and pt allergic to acetaminophen. Pt said acetaminophen caused airway spasm in past. Provider gave telephone read-back orders for PO dilaudid and diazepam. Provider also ordered that telemetry could be discontinued.
[2023-06-11] MEDS: hydrOXYzine pamoate 25 MG CAPSULE PO ×2 (14:00→17:58)
[2023-06-11] MEDS: HYDROMORPHONE 4 MG TABLET PO ×2 (14:00→17:58)
--- NOTE | 2023-06-11 15:56 | PT.IPTN ---
Current Diagnoses Chronic obstructive pulmonary disease, unspecified (06/10/23) Spinal stenosis, lumbar region with neurogenic claudication (06/10/23) Other intervertebral disc displacement, lumbar region (06/10/23) Surgery Performed Operation Date: 06/10/23 11:45 Actual Procedures p L3-4 TLIF - Sandra Caballero MD Physical Therapy Treatment Note M2 PT-IP Current Condition Start: 06/11/23 10:18 Freq: NEEDED Status: Active Protocol: Document 06/11/23 10:18 AB (Rec: 06/11/23 10:47 AB [id number]) Physical Therapy Current Condition Current Condition Evaluation Date 06/11/23 Treatment Diagnosis s/p lumbar TLIF L3-4 Onset Date 06/10/23 M3 PT-IP Subjective Start: 06/11/23 10:18 Freq: NEEDED Status: Active Protocol: Document 06/11/23 16:14 AB (Rec: 06/11/23 16:21 AB [id number]) Subjective Physical Therapy Visit Type Type Treatment Note Visit Start Time 15:46 Visit Stop Time 15:56 Total Visit Minutes 10 Physical Therapy Visit Comments Patient Comments Pt presents seated in chair with present in room and RN providing pt with medications. He reports he has 10/10 pain currently and doesn't feel like he can participate in mobility this afternoon. Therapy Pain Assessment Pain When Pain Assessed At Rest Pain Present Pain Present Pain Reported Location Lower Back Intensity 10 Scale Used Numeric (0 - 10) Pain Behaviors Guarding Pain Management Techniques Distraction M4 PT-IP Mobility and Gait Start: 06/11/23 10:18 Freq: NEEDED Status: Active Protocol: Document 06/11/23 10:18 AB (Rec: 06/11/23 10:47 AB [id number]) PT-Bed Mobility Assessment Rolling Type of Rolling Log Rolling Level of Assist Standby Assistance Supine to Sit Supine to Sit Standby Assistance Sit to Supine Sit to Supine Standby Assistance Scooting Scooting to Edge of Bed Standby Assistance PT-Transfer Assessment Sit to and From Stand Sit to and from Stand Standby Assistance,Use of Upper Extremities Equipment Transfer Assistive Device Gait Belt,Front Wheeled Walker Transfers Transfer Destination Bed,Chair Transfer Technique Stand Step Pivot Transfer Ability Level of Assist Standby Assistance,Use of Upper Extremities Comments Mobility Comments Pt reports he has already been up walking with shift foreman nursing staff, and denied any episodes of dizziness and lightheadedness. Pt performed STS and chair<>bed transfer using FWW and SBA. Pt was then instructed in performing log roll technique for sit<>supine , and is able to perform with SBA though he has difficulty raising his legs on to bed. After resting supine in bed in order to allow pain to calm down, the pt then performed log roll for supine<>sit at EOB with SBA. Pt then performed additional mobility below. At end of session, pt returned to chair with all needs met and call light within reach. Gait Assessment Gait Gait Assistance Required: Standby Assistance Distance (Feet) 150 Assistive Devices Assistive Device Gait Belt,Front Wheeled Walker Gait Deviations General Gait Pattern Decreased Stride Length,Flexed Trunk Factors Limiting Gait Function Factors Limiting Gait Function Decreased Strength,Limited Range of Motion,Pain Comments Gait Comments Pt ambulated with FWW and SBA, which he reports is much better than without AD as he did last night. He reports his limiting factor is pain. He walks with mild forward flexed trunk but is able to self correct. Stair Climbing Assessment Evaluation Level of Assist On Stairs Standby Assistance Devices Stair Climbing Assistive Devices Front Wheel Walker Technique/Endurance Stair Climbing Direction Ascend and Descend Stair Climbing Technique Step to Step Number of Steps Climbed 1 Stair Climbing Set # Repetitions (reps) 1 Comments Stair Climbing Comments Pt demonstrates he has enough LE strength to ascend/descend 1 step, and was able to perform using FWW, with education provided for proper technique. PT-Balance Assessment Sitting Balance and Reactions Static Sitting Balance Ability Normal Dynamic Sitting Balance Ability Normal Standing Balance and Reactions Static Standing Balance Ability Normal Dynamic Standing Balance Ability Good M5 PT-IP Objective Assessments Start: 06/11/23 10:18 Freq: NEEDED Status: Active Protocol: Document 06/11/23 10:18 AB (Rec: 06/11/23 10:47 AB [id number]) Orientation Orientation/Cognition Level of Alertness Alert Orientation Name,Age,Birthday,Month,Date, Year,Day of Week,Place, Situation Language Function Ability No Deficits Noted Safety Awareness Understands Safety Issues Memory Description No Deficits Noted Gross Range of Motion Upper Extremity ROM Assessment Within Functional Limits Lower Extremity ROM Assessment Within Functional Limits Strength Upper Extremity Strength Assessment Within Functional Limits Lower Extremity Strength Assessment Within Functional Limits Muscle Tone Muscle Tone WNL Yes M6 PT-IP Treatment Start: 06/11/23 10:18 Freq: NEEDED Status: Active Protocol: Document 06/11/23 16:14 AB (Rec: 06/11/23 16:21 AB [id number]) Physical Therapy Treatment Exercises Exercises Ankle Pumps,Seated Knee Flexion/Extension Education Education Provided Safety Brace Education Patient,Caregiver Other Treatments Other Treatment Performed -ankle pumps x5, LAQs x3 -PT provided pt with LE seated and supine exercise handouts and instructed pt in performing these when he is seated in chair or supine in bed to improve mobility. The pt verbalized understanding of exercises, as he was familiar with these from prior surgeries. M7 PT-IP Assessment and Plan Start: 06/11/23 10:18 Freq: NEEDED Status: Active Protocol: Document 06/11/23 16:14 AB (Rec: 06/11/23 16:21 AB [id number]) PT Summary Assessment and Plan Potential Rehabilitation Potential Good Status of Condition at Evaluation Stable Summary Impairments Pain,ROM,Strength,Balance,Bed Mobility,Transfers,Gait, Activity Tolerance Assessment Summary Due to significant pain levels this afternoon, functional mobility was not performed with the pt. Instead, the pt requested information and education regarding exercises he can currently perform, as his pain allows. PT provided the pt with exercise handouts as well as education regarding performance of these exercises. The pt was able to perform ankle pumps and LAQs as listed above. The pt would continue to benefit from skilled PT, and PT continues to recommend discharge to home with assistance at this time. Goals Bed Mobility Goal Independent Transfer Goal Independent,Front Wheeled Walker Gait Goal Independent,Front Wheel Walker Gait Distance 200 Other Goals Pt to be able to perform transfers with FWW or no AD independently in order to show improving strength and mobility to perform functional activities. Pt to be able to ambulate 200ft with FWW or LRAD independently without significant gait deviations to show improving tolerance to ambulation. Days to Meet Goals 5 Frequency of Treatment Frequency Of Treatment Twice a Day Treatment Plan Physical Therapy Treatment Plan Bed Mobility Training,Transfer Training,Gait Training, Therapeutic Exercise,Balance Retraining,Post Op Education, Discharge Planning,Hot or Cold Pack,Neuromuscular Re-ed, Coordination Retraining,Manual Therapy Precautions Lumbar Precautions Log Roll,No Twisting,Limit Bending,Lifting Restriction of 10 lbs,Gait Belt above Incisional Area Recommendations To Nursing Amount of Assist Needed 1 Person Assist Discharge Recommendations PT Discharge Recommendations Home with Assistance Transportation Needs at Discharge Private Vehicle
[2023-06-11] MEDS: ATORVASTATIN 20 MG TABLET PO (20:08)
[2023-06-11] MEDS: SENNOSIDES 8.6 MG TABLET 17.2 MG PO (20:08)
[2023-06-11] MEDS: EZETIMIBE 10 MG TABLET PO (20:08)
[2023-06-12] MEDS: HYDROMORPHONE 4 MG TABLET PO ×2 (01:34→08:19)
[2023-06-12 01:48] VITALS: BP 145/67; PULSE 100; RESP 18; O2SAT 94
[2023-06-12 07:22] VITALS: BP 162/68; PULSE 98; RESP 20; TEMP 36.4; O2SAT 93
[2023-06-12] MEDS: ALBUTEROL 2.5 MG/3 ML NEB (ADULT) INH (07:41)
[2023-06-12] MEDS: BUDESONIDE 0.5 MG/2 ML NEB INH (07:41)
[2023-06-12 07:45] VITALS: PULSE 127; RESP 18; O2SAT 95
--- NOTE | 2023-06-12 07:57 | PC.NURSE ---
Pt is awake, alert and oriented. States he is doing well today and that his pain is much better. Denies numbness or tingling. CMS intact. Pt up with PT. DSG to back changed to Coversite due to it rolling up from the bottom from contact with the bed.
--- NOTE | 2023-06-12 08:04 | PT.IPTN ---
Current Diagnoses Chronic obstructive pulmonary disease, unspecified (06/10/23) Spinal stenosis, lumbar region with neurogenic claudication (06/10/23) Other intervertebral disc displacement, lumbar region (06/10/23) Arthrodesis status (06/10/23) Surgery Performed Operation Date: 06/10/23 11:45 Actual Procedures p L3-4 TLIF - Sandra Caballero MD Physical Therapy Treatment Note M2 PT-IP Current Condition Start: 06/11/23 10:18 Freq: NEEDED Status: Active Protocol: Document 06/12/23 07:41 SP (Rec: 06/12/23 08:27 SP [id number]) Physical Therapy Current Condition Current Condition Evaluation Date 06/11/23 Treatment Diagnosis s/p lumbar TLIF L3-4 Onset Date 06/10/23 M3 PT-IP Subjective Start: 06/11/23 10:18 Freq: NEEDED Status: Active Protocol: Document 06/12/23 07:41 SP (Rec: 06/12/23 08:27 SP [id number]) Subjective Physical Therapy Visit Type Type Treatment Note Visit Start Time 07:41 Visit Stop Time 08:04 Total Visit Minutes 23 Notes Nursing in room, assisted with 2nd person bed mobility support. Vitals LUE automated: supine: 166/90 HR 86 SaO2 49- 100bpm (Afib) Number of ROUTE RIDER Visits 1 Physical Therapy Visit Comments Patient Comments Pt agreeable to working with therapy even though not premedicated. 0/10 at rest. Therapy Pain Assessment Pain When Pain Assessed During Mobility Pain Present Pain Present Pain Reported Location Lower Back Intensity 8 Pain Behaviors Facial Grimacing,Guarding Pain Management Techniques Apply Cold,Distraction, Modification of Treatment,Re- positioning M4 PT-IP Mobility and Gait Start: 06/11/23 10:18 Freq: NEEDED Status: Active Protocol: Document 06/12/23 07:41 SP (Rec: 06/12/23 08:27 SP [id number]) PT-Bed Mobility Assessment Rolling Type of Rolling Log Rolling Level of Assist Standby Assistance Supine to Sit Supine to Sit Moderate Assistance,2 Person Assistance,Bedrails Scooting Scooting to Edge of Bed Standby Assistance PT-Transfer Assessment Sit to and From Stand Sit to and from Stand Contact Guard Assistance, Minimal Assistance,1 Person Assistance,Use of Upper Extremities Equipment Transfer Assistive Device Gait Belt,Front Wheeled Walker Transfers Transfer Destination Chair Transfer Technique pt ambulated with FWW Transfer Ability Level of Assist Standby Assistance,Contact Guard Assistance,Use of Upper Extremities Comments Mobility Comments Pt good recall to precautions, slow performance (extra time needed) during Log roll L with use bed rail with reports stiffness and back pain, Mod/ Max A x2 support required trunk righting L SL>sit, scoot EOB SBA heavy BUEs. Sit EOB BUE support on bed. ROUTE RIDER instructed HEP: HRTR, LAQ, hip abd/add AROM for premobilty strength. STS cued push from bed. CG/MIn A with heavy BUE WB, unsteady/weakness in BLEs initially coming to standing. Instructed stationary stand and wt shift for TKE and glut support standing awareness. Gait around room w/ FWW, occasional cues for elongated posture and proximity to back legs of FWW including during turns, improved ease of FWW repositioning. Pt improved LE WB and decrease UE WB on FWW, decreased endurance to distance gait in room 30 ft w/ FWW, CG>SBA due to pain reports. Pt up in chair w/ call light and all needs in reach. Provided pt CP for back to assist pain control support and warm blanket requested. ROUTE RIDER notified nurse request for pain meds before left. Pt is ok to return home with family when medically cleared and pain control support. Gait Assessment Gait Gait Assistance Required: Standby Assistance,Contact Guard Assist Distance (Feet) 30 Assistive Devices Assistive Device Gait Belt,Front Wheeled Walker Gait Deviations General Gait Pattern Decreased Stride Length,Flexed Trunk,Wide Based Gait Factors Limiting Gait Function Factors Limiting Gait Function Decreased Activity Tolerance, Decreased Strength,Limited Range of Motion,Pain,Poor Safety Awareness,Respiratory Distress Comments Gait Comments Cued more upright posture and proximity to FWW near back legs, including during turns, step over step. Stair Climbing Assessment Comments Stair Climbing Comments Pt completed SBA 1 step yesterday, declined again today due to pain reports but report feels confident to enter home. PT-Balance Assessment Sitting Balance and Reactions Static Sitting Balance Ability Good Dynamic Sitting Balance Ability Fair Standing Balance and Reactions Static Standing Balance Ability Good Dynamic Standing Balance Ability Fair Device Used FWW M5 PT-IP Objective Assessments Start: 06/11/23 10:18 Freq: NEEDED Status: Active Protocol: Document 06/11/23 10:18 AB (Rec: 06/11/23 10:47 AB [id number]) Orientation Orientation/Cognition Level of Alertness Alert Orientation Name,Age,Birthday,Month,Date, Year,Day of Week,Place, Situation Language Function Ability No Deficits Noted Safety Awareness Understands Safety Issues Memory Description No Deficits Noted Gross Range of Motion Upper Extremity ROM Assessment Within Functional Limits Lower Extremity ROM Assessment Within Functional Limits Strength Upper Extremity Strength Assessment Within Functional Limits Lower Extremity Strength Assessment Within Functional Limits Muscle Tone Muscle Tone WNL Yes M6 PT-IP Treatment Start: 06/11/23 10:18 Freq: NEEDED Status: Active Protocol: Document 06/12/23 07:41 SP (Rec: 06/12/23 08:27 SP [id number]) Physical Therapy Treatment Exercises Exercises Seated Knee Flexion/Extension Other Treatments Other Treatment Performed Seated HRTR, hip abd/add ( clamshell), verbal review supine ther ex and pt stated good understanding. Suggested standing mobillity hourly awake for circulation and strength progression, pt verbalized in agreement. M7 PT-IP Assessment and Plan Start: 06/11/23 10:18 Freq: NEEDED Status: Active Protocol: Document 06/12/23 07:41 SP (Rec: 06/12/23 08:27 SP [id number]) PT Summary Assessment and Plan Potential Rehabilitation Potential Good Status of Condition at Evaluation Stable Summary Impairments Pain,ROM,Strength,Balance,Bed Mobility,Transfers,Gait, Activity Tolerance Progress Towards Goals Progressing Toward Goals,Slow Progress due to Pain,Slow Progress due to Activity Tolerance Assessment Summary Pt limited with mobility tolerance today due to pain reports today. Mod/Max A x2 for bed mob L SL>sit, CGA/ SBA rest of mobility w/ FWW. Pt states will be sleeping in recliner at home. Pt is ok to return home with family assist when pain controlled and medically cleared. Goals Bed Mobility Goal Independent Transfer Goal Independent,Front Wheeled Walker Gait Goal Independent,Front Wheel Walker Gait Distance 200 Other Goals Pt to be able to perform transfers with FWW or no AD independently in order to show improving strength and mobility to perform functional activities. Pt to be able to ambulate 200ft with FWW or LRAD independently without significant gait deviations to show improving tolerance to ambulation. Days to Meet Goals 5 Frequency of Treatment Frequency Of Treatment Twice a Day Treatment Plan Physical Therapy Treatment Plan Bed Mobility Training,Transfer Training,Gait Training, Therapeutic Exercise,Balance Retraining,Post Op Education, Discharge Planning,Hot or Cold Pack,Neuromuscular Re-ed, Coordination Retraining,Manual Therapy Other Recommendations and Next Treatment Bed mob, transfers, gait Focus further distance. Precautions Lumbar Precautions Log Roll,No Twisting,Limit Bending,Lifting Restriction of 10 lbs,Gait Belt above Incisional Area Recommendations To Nursing Amount of Assist Needed 1 Person Assist Discharge Recommendations PT Discharge Recommendations Home with Assistance,Home with 24/7 Assist Available Transportation Needs at Discharge Private Vehicle
--- NOTE | 2023-06-12 08:05 | PM.DS.1 ---
History of Present Illness History of Present Illness Date Patient Seen: 06/12/23 Time Patient Seen: 08:05 Chief complaint: Translaminar Interbody Fusion/Laminotomy 06/10 Narrative: Operative Date/Time/Diagnoses Date of procedure: 06/10/23 Time of procedure: 12:50 Pre-op diagnosis: 1. L3-4 far lateral disc herniation with radiculopathy 2. L3-4 spinal stenosis with neurogenic claudication Post-op diagnosis: same Procedure & Clinicians Procedure: 1. L3-4 Postero-lateral and posterior interbody fusion 2. L3-4 interbody cage placement. 3. L3-4 decompressive laminectomy with bilateral facetecomies 4. L3-4 Posterior non-segmental instrumentation 5. Warren of bone marrow from iliac crest 6. Utilization of microsurgical technique and operating microscope Same procedure as scheduled: Yes Indications: Patient has been having chronic back pain and worsening lumbar radiculopathy and symptoms of neurogenic claudication. Patient failed multiple conservative management with worsening pain weakness and numbness in her lower extremity. Patient has been having difficulty performing activity of daily living. After discussing risks benefits of treatment options, patient elected proceed with surgery. Surgeon: Sandra Caballero Conveyor Console Operator: Chidi Goddard Click Yes if Unassisted: No Anesthesia Type: General Operative Notes Closure Type: primary Specimen(s): none sent Prosthetic devices, grafts, tissues, transplants, or devices: Globus revolve screws, Rise cage Estimated Blood Loss (mL): 50 Blood products transfused: none Discharge Providers Provider Date of admission: 06/10/23 09:52 Discharge Date: 06/12/23 Primary care physician: USMAN Bro Consults: 06/10/23 18:57 Consult to Occupational Therapy Evaluate & Treat Comment: Physician Instructions: Evaluate and treat Consult to Physical Therapy Evaluate & Treat Comment: Physician Instructions: Evaluate and Treat Discharge provider: Krupa Crow PA-C Summary Hospital Course Discharge Diagnosis: L3-4 far lateral disc herniation with radiculopathy, L3-4 spinal stenosis with neurogenic claudication; s/p lumbar fusion Hospital Course: Mr Menjivar's hospital course was remarkable for bronchospasm with extubation; he was admitted to the ICU postoperatively and bronchospasm resolved with medication. He also had difficulty w/ postop pain control. On the morning of POD# 2 he was feeling much better and wanted to go home. He was eating and voiding without difficulty and his O2 saturation was 92% or better on room air. He was evaluated by PT and felt to be safe for discharge home w/ assistance at home. His pain was well-controlled with a combination of oral medications. Exam Vital Signs (past 8 hours): - 06/12/23 01:48 06/12/23 07:22 Temperature 97.5 F L Pulse Rate 100 H 98 H Respiratory Rate 18 20 Blood Pressure 145/67 H 162/68 H Pulse Oximetry 94 93 Oxygen Flow Rate 0 0 Oxygen Delivery Method Room Air Oxygen Flow Rate 0 Narrative Exam Narrative: 5/5 strength in hip flexors, quadriceps, hamstrings, DF, PF, EHL bilaterally. Sensation to light touch is intact in BLE. Calves soft, compressible, nontender. Dressing changed since surgery and is CDI. [facility] Medical History History of acute myocardial infarction (~06/21/16) History of angiography History of asthma History of chronic back pain History of COPD History of degenerative joint disease History of diabetes mellitus History of essential hypertension History of hearing loss History of hyperlipidemia History of metabolic syndrome History of obstructive sleep apnea Surgical History History of carpal tunnel surgery of left wrist History of carpal tunnel surgery of right wrist (~2012) History of heart artery stent (~2008) History of total hip replacement (~2010) History of total hip replacement (~2006) History of umbilical hernia repair Social History household members: spouse Smoking Status: Former smoker alcohol intake: current Discharge Assessment & Plan Assessment and Plan Assessment: L3-4 far lateral disc herniation with radiculopathy, L3-4 spinal stenosis with neurogenic claudication; s/p lumbar fusion Plan of Treatment: Discharge home, multimodal pain control, f/u in office in 2 weeks as scheduled. Discharge Plan Discharge Plan Patient Disposition: Home Discharge orders & Medications Prescriptions: New diazepam 5 mg Tablet 5 mg PO Q4HR PRN (Reason: spasm) Qty: 30 0RF docusate sodium 100 mg Capsule 100 mg PO BID PRN (Reason: constipation) Qty: 60 1RF hydroxyzine pamoate 25 mg Capsule 25 mg PO Q4HR PRN (Reason: muscle spasm) Qty: 60 0RF oxycodone 5 mg Tablet 5 mg PO Q4HR PRN (Reason: Pain, Moderate (4-6)) Qty: 60 0RF hydromorphone 2 mg Tablet 2 mg PO Q4-6H PRN (Reason: pain, severe) Qty: 20 0RF Continued chlorthalidone 50 mg Tablet 50 mg PO BID metoprolol succinate [Toprol XL] 25 mg Tablet Extended Release 24 Hr 25 mg PO DAILY albuterol sulfate 90 mcg/actuation Hfa Aerosol Inhaler 2 puff INHALATION Q4-6H PRN (Reason: Shortness Of Breath Or Wheezing) losartan 100 mg Tablet 100 mg PO DAILY rosuvastatin 10 mg Tablet 10 mg PO BEDTIME metformin 500 mg Tablet 1,000 mg PO DAILY aspirin 81 mg Tablet,Delayed Release (Dr/Ec) 81 mg PO DAILY diphenhydramine HCl [Benadryl] 25 mg Capsule 25 mg PO TID PRN (Reason: Allergic Reaction) fluticasone propion-salmeterol [Wixela Inhub] 500-50 mcg/dose Blister With Device 1 inh INHALATION BID ezetimibe [Zetia] 10 mg Tablet 10 mg PO BEDTIME potassium 99 mg Tablet 99 mg PO DAILY ascorbic acid (vitamin C) [Vitamin C] 500 mg Tablet 500 mg PO BID [id number] Tablet 1 tab PO DAILY cholecalciferol (vitamin D3) [Vitamin D3] 125 mcg (5,000 unit) Tablet 250 mcg PO DAILY vitamin E mixed 1,000 unit Capsule 1,000 unit PO DAILY Solon 3-6-9 1,200 mg Capsule 1 cap PO DAILY Follow up/Referrals: Soraya Pandya FNP-C [Primary Care Provider] - Sandra Caballero MD [Physician] - As previously scheduled (Follow up with Dr Caballero on 06/25/2023 @ 1:30 pm at [facility] office in [place].) Diet/Activity/Treatments Diet: Diet as Tolerated Activity: No deep bending or twisting at the waist. No lifting more than 10 pounds. Cold/Heat Therapy: Heating pad to low back as needed. Skin/Wound/Dressing Care Report to your healthcare provider any signs of infection, such as:: chills, fever, night sweats, unusual drainage and unusual redness Dressing: May shower. Keep dressing as dry as possible. If dressing becomes wet or dirty, may remove and replace with clean, dry gauze. No bathing or otherwise soaking incisions. Do not apply any creams, lotions, or ointments to incisions. Visit Report/Discharge Packet Instructions: DI for Prescription Opioid Use, Hydromorphone, Diazepam, Oxycodone, Hydroxyzine, DI for Transforaminal Lumbar Interbody Fusion Stand Alone Forms: Patient Portal/API, Stroke Signs & Symptoms, Surgery Discharge Discharge Data Primary Care Provider: Soraya Pandya VTE Deep Vein Thrombosis/Pulmonary Embolism Present on Admission: No
[2023-06-12 08:18] VITALS: BP 162/68
[2023-06-12] MEDS: METFORMIN HCL 500 MG TABLET 1000 MG PO (08:18)
[2023-06-12] MEDS: MULTIVITAMIN 1 TABLET 1 TAB PO (08:18)
[2023-06-12] MEDS: LOSARTAN 50 MG TABLET 100 MG PO (08:18)
[2023-06-12 08:19] VITALS: BP 162/68
[2023-06-12] MEDS: DOCUSATE 100 MG CAPSULE PO (08:19)
[2023-06-12] MEDS: CHOLECALCIFEROL (VITAMIN D3) 5,000 UNIT TABLET 10000 UNIT PO (08:19)
[2023-06-12] MEDS: FISH OIL 1,000 MG CAPSULE 1000 MG PO (08:19)
[2023-06-12] MEDS: METOPROLOL ER 25 MG TABLET PO (08:19)
[2023-06-12] MEDS: CHLORTHALIDONE 25 MG TABLET 50 MG PO (08:19)
[2023-06-12] MEDS: ASCORBIC ACID 500 MG TABLET PO (08:19)
--- NOTE | 2023-06-12 09:10 | OT.IPNOTE ---
Asked pt about showering again today and pt states to just do it at home. In addition, pt states in too much pain at this time and awaiting pain medications.
--- NOTE | 2023-06-12 11:27 | CM.DPNOTE ---
DC Note Patient will discharge home today, home w/spouse to assist as needed. No barriers identified to safe discharge plan home w/spouse, close outpatient follow up recommended. JW
[2023-06-12] MEDS: HYDROMORPHONE 2 MG TABLET PO (11:33)
--- NOTE | 2023-06-12 12:58 | OT.IP.TRT ---
Current Diagnoses Chronic obstructive pulmonary disease, unspecified (06/10/23) Spinal stenosis, lumbar region with neurogenic claudication (06/10/23) Other intervertebral disc displacement, lumbar region (06/10/23) Arthrodesis status (06/10/23) Surgery Performed Operation Date: 06/10/23 11:45 Actual Procedures p L3-4 TLIF - Sandra Caballero MD Occupational Therapy Treatment Note M2 OT-IP Current Condition Start: 06/11/23 11:25 Freq: Status: Discharge Protocol: Document 06/11/23 10:15 [facility] (Rec: 06/11/23 11:43 [facility] [id number]) Occupational Therapy Current Condition Current Condition Evaluation Date 06/11/23 Treatment Diagnosis S/P L3-4 TLIF Diagnosis Onset Date 06/10/23 Post Operative Precautions Lumbar Precautions Log Roll,No Twisting,Limit Bending,Lifting Restriction of 10 lbs,Gait Belt above Incisional Area M3 OT- IP Subjective and Pain Start: 06/11/23 11:25 Freq: Status: Discharge Protocol: Document 06/12/23 12:17 [facility] (Rec: 06/12/23 13:44 [facility] [id number]) OT- Subjective Occupational Therapy Visit Type Type Treatment Note Visit Start Time 12:17 Visit Stop Time 12:58 Total Visit Minutes 41 Occupational Therapy Visit Comments Patient Comments After encouragement, pt agreed to shower when his come. Patient/Caregiver Goals TO go home. OT Pain Assessment Pain When Pain Assessed During Mobility Pain Present Pain Present Pain Reported Location Lower Back Intensity 7 Scale Used Numeric (0 - 10) M4 OT- IP ADL's Start: 06/11/23 11:25 Freq: Status: Discharge Protocol: Document 06/12/23 12:17 [facility] (Rec: 06/12/23 13:44 [facility] [id number]) OT PGR-[id number]-Zerkygd General Evaluation Self-Feeding Ability Independent OT ADL-Grooming Comments OT Grooming Comments Not performed. OT ADL-Oral Care Comments Oral Care Comments Educated best for pt to spit into a cup or hinge at his hips in order to best follow his back precautions. OT ADL-Dressing General Eval Lower Body Dressing Ability Maximum Assistance Areas Needing Assistance Underpants/Brief,Pants/Shorts, Socks,Shoes Comments OT Dressing Comments Able to have pt practice use of milieu therapist and sock aid. Pt too tired after showering and needing assist for LB dressing needs. OT ADL-Toileting Comments OT Toileting Comments Suggested pt have use of urinal at home to use. OT ADL-Bathing Bathing Type Bathing Type Shower General Evaluation Bathing Ability Moderate Assistance,Maximal Assistance Areas Needing Assistance Wash/Dry Back,Wash/Dry Perineal Area,Wash/Dry Lower Extremities Comments OT Bathing Comments Pt will greatly benefit from a shower chair at home or use of FWW in the shower as there are no grab bars in the shower. Pt's able to safely assist pt for showering needs at this time. M5 OT- IP IADL's Start: 06/11/23 11:25 Freq: Status: Discharge Protocol: Document 06/11/23 10:15 [facility] (Rec: 06/11/23 11:43 [facility] [id number]) OT-Instrumental Activities of Daily Living Deficits IADL Deficits Identified Deficits Home Safety Awareness Awareness of Need for Assistance at Home Good Awareness Ability to Problem Solve Emergency Able to Problem Solve Situations Medication Management Medication Management No Deficits Identified Money Management Money Management No Deficits Identified Meal Preparation Meal Preparation Comments Pt's to assist. Learning Support Aide Learning Support Aide Comments Pt's to assist. M6 OT- IP Functional Cognition Start: 06/11/23 11:25 Freq: Status: Discharge Protocol: Document 06/12/23 12:17 [facility] (Rec: 06/12/23 13:44 [facility] [id number]) Cognitive Factors Limiting Selfcare Function Cognitive Comments Cognitive Assessment Comments Pt needing education of transitions to be sure not to stop while trying to stand up due to the pain. Pt's able to safely assist pt to breanna/doff the gait belt and assist to walk into and out of the shower. M7 OT- IP Mobility and Balance Start: 06/11/23 11:25 Freq: Status: Discharge Protocol: Document 06/12/23 12:17 [facility] (Rec: 06/12/23 13:44 [facility] [id number]) OT-Transfer Assessment Sit to and From Stand Sit to and from Stand Contact Guard Assistance, Minimal Assistance,Moderate Assistance Transfers Transfer Ability Contact Guard Assistance Comments Mobility Comments Pt needing MODA to stand from lower surfaces. Once on his feet, CGA with the FWW. Pt's able to safely assist pt with the FWW at this time. OT- Balance Assessment Sitting Balance and Reactions Static Sitting Balance Ability Normal Dynamic Sitting Balance Ability Good Standing Balance and Reactions Static Standing Balance Ability Good Dynamic Standing Balance Ability Fair M9 OT- IP Assessment and Plan Start: 06/11/23 11:25 Freq: Status: Discharge Protocol: Document 06/12/23 12:17 [facility] (Rec: 06/12/23 13:44 [facility] [id number]) OT Summary Assessment and Plan Potential Rehabilitation Potential Good Analytic Complexity at Evaluation Low Summary OT Impairments Pain,Balance,Functional Mobility,Dressing,Toileting, Bathing,Toilet Transfers, Shower Transfers Progress Towards Goals Progressing Toward Goals Assessment Summary Pt doing well and pt's able to participate in caregiver training for showering,dressing, and toileting needs along with his mobility with the FWW. Pt to go home with his . Goals Dressing Goal Independent Toileting Goal Independent Bathing Goal Independent Toilet Transfer Goal Independent Shower Transfer Goal Independent Days to Meet Goals 6 Frequency of Treatment Frequency Of Treatment Once a Day Treatment Plan OT Treatment Plan ADL Training,Functional Mobility,Patient/Family Education,Discharge Planning Discharge Recommendations OT Discharge Recommendations Home with Assistance Home Equipment Needs LB dressing equipment and shower chair Transportation Needs at Discharge Private Vehicle
--- NOTE | 2023-06-12 13:03 | PC.NURSE ---
Pt is dressed and ready for discharge home with Spouse. He has showered with assist by OT. Dsg to back has been changed. IV has been removed. Went over d/c instructions with Pt and Spouse-discussed d/c meds, time of last dose, reviewed stroke education, s/s of infection, no driving while on narcotics and until cleared by Physician, drink plenty of fluids to prevent constipation or dehydration, and follow up as scheduled. Pt and Spouse denied further questions and Pt will be taken out via w/c by [facility] to POV with Spouse and all belongings.
== END 2023-06-12 13:14 | disposition home or self-care (01) | DRG 455 ==
LOC: AC 16:40 → ICU 16:44
PROVIDERS: Admitting Provider Orthopaedic Surgery Orthopaedic Surgery of the Spine; PCP Registered Nurse; Referring Provider Orthopaedic Surgery Orthopaedic Surgery of the Spine; Visit Provider Orthopaedic Surgery Orthopaedic Surgery of the Spine
PROC: 0SG00AJ Fusion of Lumbar Vertebral Joint with Interbody Fusion Device, Posterior Approach, Anterior Column, Open Approach (ICD-10-PCS; principal; 2023-06-10 11:45)
DX: M51.16 Intervertebral disc disorders with radiculopathy, lumbar region (principal); J98.01 Acute bronchospasm; M48.062 Spinal stenosis, lumbar region with neurogenic claudication; I10 Essential (primary) hypertension; I25.10 Atherosclerotic heart disease of native coronary artery without angina pectoris; G47.33 Obstructive sleep apnea (adult) (pediatric); J44.9 Chronic obstructive pulmonary disease, unspecified; G89.18 Other acute postprocedural pain; E11.9 Type 2 diabetes mellitus without complications; Z79.84 Long term (current) use of oral hypoglycemic drugs; Z87.891 Personal history of nicotine dependence
CPT/HCPCS: 36415; 36592; 72100; 76000; 82962; 94640; 97116; 97161; 97165; 97530; 97535; A9270; C1713; C9290; J0171; J0330; J0690; J1100; J1170; J2310; J2405; J2704; J3410; J7613